=== PATIENT | female | born 1985 | race Caucasian/White ===

== ENCOUNTER 2016-12-13 17:11 | Emergency (ER) | payer BC, OTHER ==
[~2016-12-13 17:11] MED LIST: ULTR50TA PO; Z.0.NO CURRENT MEDS
[2016-12-13] MEDS ORDERED: LACTATED RINGER'S 1000 ML INJ 1,000 ML IV SCH (18:03)
[2016-12-13] MEDS ORDERED: TERBUTALINE INJ 1 MG/ML AMP SQ PRN (18:15)
[2016-12-13 18:40] LABS: BLOOD, URINE NEG (NEG); COMMENT (UR) CULT NOT INDICATED; CULTURE IF INDICATED CULT NOT INDICATED; GLUCOSE,URINE NEG (NEG); KETONE, URINE NEG (NEG); NITRITE,URINE NEG (NEG); PH, URINE 6.5 (5.0-8.5); SQUAMOUS EPITHELIAL CELL URINE 4 /hpf (0-5); URINE COLOR YELLOW (YELLW/STRAW)
[2016-12-13 18:43] VITALS: BP 102/69; PULSE 65
--- NOTE | 2016-12-13 19:30 | PD ---
HPI Chief Complaint Complaint of spotting earlier in the day Date Seen: Dec 13, 2016 Time Seen: 18:00 Travel History International Travel<30 Days: No Contact w/Intl Traveler<30Days: No Known Affected Area: No History of Present Illness HPI Patient is 31-year-old white female at [address] Ness for care who presents planning of spotting earlier the day. She denies pain leakage of fluid or heavy vaginal bleeding. She knows this that she's been here on OB ED she's not seen any blood, baby is active she has no other problems today Weeks Gestation: 34 Para: 1 : 3 History Obstetric History Obstetric History One vaginal delivery and one early loss Social History Alcohol Use: No Tobacco Use: No Substance Abuse: No Allergies-Medications (Allergen,Severity, Reaction): Coded Allergies: No Known Allergies (Unverified , 01/15/12) Home Meds Active Scripts Tramadol HCl (Ultram) 50 Mg Tab, 1 - 2 TABS PO Q6HPRN, #20 Prov:Britney Bloom MD 01/15/12 Reported Medications Miscellaneous (No Current Meds) [facility] 01/15/12 Review of Systems General / Constitutional: No: Fever, Weight Gain, Chills, Other Eyes: No: Diploplia, Blurred Vision, Visual changes, Pain, Photophobia HENT: No: Headaches, Vertigo, Lightheadedness Cardiovascular: No: Irregular Rhythm, Chest Pain or Discomfort, Palpitations, Tachycardia, Syncope, Varicosities, Edema, Cyanosis Respiratory: No: Cough, Short of Breath, Other Gastrointestinal: No: Nausea, Vomiting, Diarrhea Genitourinary: Vaginal Bleeding, No: Decreased Urinary Output, Oliguria Musculoskeletal: No: Limited ROM, Weakness, Cramping, Edema, Pain Skin: No Rash, No Itching, No Dryness, No Lumps, No Change in Pigmentation, No Change in Nails, No Alopecia, No Lesions Neurologic: No: Weakness, Dizziness, Syncope, Focal Abnormalities, Coordination Problem, Headache, Slurred Speech, Seizures Psychiatric: No: Depression, Suicidal Ideations, Homicidal Ideation Endocrine: No: Heat Intolerance, Cold Intolerance, Polydipsia, Polyuria, Other Physical Exam Vital Signs Date Time Temp Pulse Resp B/P (MAP) Pulse Ox O2 Delivery O2 Flow Rate FiO2 12/13/16 18:43 65 102/69 (80) Narrative GENERAL: Well-nourished, well-developed patient. SKIN: Warm and dry. HEAD: Normocephalic and atraumatic. EYES: No scleral icterus. No injection or drainage. ENT: No nasal drainage noted. Mucous membranes pink. Airway patent. NECK: Supple, trachea midline. No JVD. CARDIOVASCULAR: Regular rate and rhythm without murmurs, gallops, or rubs. RESPIRATORY: Breath sounds equal bilaterally. No accessory muscle use. BREASTS: Bilateral exam showed no masses , no retractions, no nipple discharge. ABDOMEN/GI: Abdomen soft, non-tender, bowel sounds present, no rebound, no guarding Gravid to [34-] weeks size Fundal Height: [34-] GENITOURINARY: External Genitalia: intact and normal in appearance Speculum exam done no blood seen in the vagina. Cervix is friable. fibronectin done and is negative Cervix: [-Closed] Dilatation: [-Closed] Effacement: [-] Thick Station: [-3] Membranes: [intact ] Uterine Contractions: [Patient maritza every 3 minutes initially-] FHT's: Category: [-1] Baseline: [133-] Reactive: [yes-] Variability: [-mod] Decels: [none-] EXTREMITIES: No cyanosis or edema. BACK: Nontender without obvious deformity. No CVA tenderness. NEUROLOGICAL: Awake and alert. Motor and sensory grossly within normal limits. Five out of 5 muscle strength in all muscle groups. Normal speech. Data Data Orders Orders Vital Signs (Adult) .ON ADMISSION (12/13/16 18:03) ^ Labor Status (12/13/16 18:03) Urinalysis - C+S If Indicated (12/13/16 18:03) Fibronectin (12/13/16 18:03) Lactated Ringer's 1000 Ml Inj (Lr 1000 M (12/13/16 18:03) Terbutaline Inj (Brethine Inj) (12/13/16 18:15) Fentanyl Inj (Fentanyl Inj) (12/13/16 18:45) Labs fibronectin negative Laboratory Tests Test 12/13/16 18:00 12/13/16 18:15 Urine Color YELLOW Urine Turbidity CLEAR Urine pH 6.5 Urine Specific [place] 1.020 Urine Protein NEG Urine Glucose (UA) NEG Urine Ketones NEG Urine Occult Blood NEG Urine Nitrite NEG Urine Bilirubin NEG Urine Urobilinogen 2.0 Urine Leukocyte Esterase NEG Urine RBC LESS THAN 1 Urine WBC LESS THAN 1 Urine Squamous Epithelial Cells 4 Microscopic Urinalysis Comment CULT NOT INDICATED Fibronectin NEGATIVE MDM Interpretation(s) Patient is a 31-year-old white female at 34 weeks who complains of spotting earlier today. We'll here on OB ED she's noted to be maritza every 3 minutes. Patient on exam is negative for any blood. Cervix is closed. fibronectin negative. Heart rate tracing reactive and initially was maritza every 3 minutes. Patient given liter of IV fluid subcutaneous terbutaline and 25 fentanyl IV and these measures stopped her contractions effectively. After for a liter fluid is and she should be ready for discharge Plan Plan to discharge patient home to the is much bedrest as possible. She slept have somebody else help her with her toddler not carry him around or carrying around a lot of heavy material was delivered cause her to be uncomfortable or cause her to contract. She is to be as instructed rest as best she can, use Tylenol liberally, increase her fluid intake, an heating pad or hot bath for symptomatic. She is followed Dr. Ness for further care. Diagnosis Diagnosis: Primary Impression: Spotting affecting in third trimester Additional Impression: Threatened premature labor in third trimester Disposition: 01 DISCHARGE HOME Condition: Stable Facundo Rosario II, MD Dec 13, 2016 19:30
== END 2016-12-13 19:20 | disposition home or self-care (01) ==
LOC: HOBED 17:11
DX: O26.853 Spotting complicating pregnancy, third trimester (principal); O47.03 False labor before 37 completed weeks of gestation, third trimester; Z3A.34 34 weeks gestation of pregnancy
CPT/HCPCS: 59025; 81001; 82731; 96372; 96374; 99284; J3010; J3105

== ENCOUNTER 2017-01-12 02:44 | Inpatient (IN) | payer BC ==
[~2017-01-12] VITALS: Ht 162.6 cm; Wt 66.2 kg
[2017-01-12] VITALS (51 sets, daily range): BP systolic 96–128; BP diastolic 58–105; PULSE 62–254; RESP 16–20; TEMP 97.5–98.1
[2017-01-12] MEDS ORDERED: LACTATED RINGER'S 1000 ML INJ 1,000 ML IV SCH (03:37)
[2017-01-12] MEDS ORDERED: LACTATED RINGER'S 1000 ML INJ 1,000 ML IV PRN (03:37)
--- NOTE | 2017-01-12 03:37 | PD ---
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 She reports that she is continued to have leaking of fluid since. She reports irregular contractions that have increased in intensity and frequency since her water broke. She reports good movement. She denies any vaginal bleeding. She has no other complaints or concerns today. Weeks Gestation: 38 Para: 1 : 3 History Past Medical History Narrative Medical MT HFR heterozygote Factor V deficiency Obstetric History Obstetric History 011 Full-term 1 SAB 1 Past Surgical History Narrative Surgical Hymenectomy [place] teeth removal Family History Narrative Family History Prostate cancer Aortic aneurysm Elevated cholesterol IA CD Colon cancer Social History Alcohol Use: No Tobacco Use: No Substance Abuse: No Allergies-Medications (Allergen,Severity, Reaction): Coded Allergies: No Known Allergies (Unverified , 01/15/12) Home Meds Active Scripts Tramadol HCl (Ultram) 50 Mg Tab, 1 - 2 TABS PO Q6HPRN, #20 Prov:Britney Bloom MD 01/15/12 Reported Medications Miscellaneous (No Current Meds) [facility] Review of Systems Except as stated in HPI: all other systems reviewed are Neg Physical Exam Narrative GENERAL: Well-nourished, well-developed patient. SKIN: Warm and dry. HEAD: Normocephalic and atraumatic. EYES: No scleral icterus. No injection or drainage. ENT: No nasal drainage noted. Mucous membranes pink. Airway patent. NECK: Supple, trachea midline. No JVD. CARDIOVASCULAR: Regular rate and rhythm without murmurs, gallops, or rubs. RESPIRATORY: Breath sounds equal bilaterally. No accessory muscle use. BREASTS: Deferred ABDOMEN/GI: Abdomen soft, non-tender, bowel sounds present, no rebound, no guarding Gravid GENITOURINARY: External Genitalia: intact and normal in appearance. Normal BUS. Grossly normal rugae. No cervical or vaginal masses noted. Appears to be grossly ruptured. SVE /-3. Cephalic presentation confirmed by ultrasound, appears to be OP. FHT's: Baseline heart rate in the 120s with moderate long-term variability , good accelerations, no decelerations noted. This is a category 1 heart rate tracing/reactive NST EXTREMITIES: No cyanosis or edema. BACK: Nontender without obvious deformity. No CVA tenderness. NEUROLOGICAL: Awake and alert. Motor and sensory grossly within normal limits. Five out of 5 muscle strength in all muscle groups. Normal speech. Psychiatric: Grossly normal memory and affect Musculoskeletal: Grossly normal range of motion, gait, muscle strength MDM Plan Assessment/plan: 1. IUP at 38.2 2. PROM: Will admit patient to Dr. Ness for rupture of membranes at term. Discussed with Dr. Montejo who would like to induce with oxytocin at this time. Discussed risks of with patient as well as risks and indications for delivery although unlikely. 3. GBS negative 4. well-being: Reassuring testing with reactive NST/category 1 heart rate tracing, will continue EFM 5. MT HFR heterozygote: The patient currently managed on baby aspirin which she last took yesterday 6. Factor V Leiden mutation Jory Dent MD Jan 12, 2017 03:37
[2017-01-12] MEDS ORDERED: CITRIC ACID-SODIUM CITRATE LIQ 30 ML UDC PO SCH (03:45)
[2017-01-12] MEDS ORDERED: SODIUM CHLORID 0.9% 500 ML INJ 500 ML IV PRN (03:45)
[2017-01-12] MEDS ORDERED: OXYTOCIN 30 UNITS-500ML PREMIX 500 ML IV SCH ×2 (03:45→09:30)
[2017-01-12] MEDS ORDERED: OXYTOCIN 30 UNITS-500ML PREMIX 500 ML IV ONE (03:45)
[2017-01-12] MEDS ORDERED: LIDOCAINE HCL 1% 50 ML VIAL I-DERMAL PRN (03:45)
[2017-01-12] MEDS ORDERED: MINERAL OIL 10 ML VIAL TOPICAL PRN (03:45)
[2017-01-12] MEDS ORDERED: LIDOCAINE HCL 1% 50 ML VIAL INFIL PRN (03:45)
[2017-01-12] MEDS ORDERED: SODIUM CHLOR 0.9% 1000 ML INJ 1,000 ML IV PRN (03:57)
[2017-01-12 04:33] LABS: AUTOMATED NEUTROPHIL # 8.4 TH/MM3 (1.8-7.7); BASOPHIL % 0.4 % (0.0-2.0); EOSINOPHIL # 0.1 TH/MM3 (0-0.4); EOSINOPHIL % 1.1 % (0.0-4.0); HEMATOCRIT 38.2 % (35.0-46.0); HEMO FLAGS DIFF FINAL; LYMPH % 20.9 % (9.0-44.0); LYMPHOCYTE # 2.5 TH/MM3 (1.0-4.8); MEAN CELL VOLUME 93.4 FL (80.0-100.0); MEAN CORPUSCULAR HEMOGLOBIN 32.3 PG (27.0-34.0); MEAN CORPUSCULAR HGB CONC 34.6 % (32.0-36.0); MONO % 6.5 % (0.0-8.0); NEUT % 71.1 % (16.0-70.0); PLATELET COUNT 227 TH/MM3 (150-450); RED BLOOD COUNT 4.09 MIL/MM3 (4.00-5.30); RED CELL DISTRIBUTION WIDTH 13.5 % (11.6-17.2); WHITE BLOOD COUNT 11.9 TH/MM3 (4.0-11.0)
[2017-01-12 05:02] LABS: BLOOD, URINE NEG (NEG); GLUCOSE,URINE NEG (NEG); KETONE, URINE NEG (NEG); MUCUS URINE FEW /lpf (OCC); NITRITE,URINE NEG (NEG); PH, URINE 6.5 (5.0-8.5); SQUAMOUS EPITHELIAL CELL URINE <1 /hpf (0-5); URINE COLOR LIGHT-YELLOW (YELLW/STRAW)
[2017-01-12 05:03] LABS: COMMENT (UR) CATH-CULT NOT IND; CULTURE IF INDICATED CATH CULTURE NOT IND
[2017-01-12] MEDS ORDERED: fentaNYL 2MCG-BUPIV 0.125% INJ 100 ML ONE (07:30)
--- NOTE | 2017-01-12 07:32 | HHI.HP ---
HPI Chief Complaint SROM Date Seen: Jan 12, 2017 Time Seen: 06:00 Travel History International Travel<30 Days: No Contact w/Intl Traveler<30Days: No Known Affected Area: No History of Present Illness HPI SROM at 0130 clear Weeks Gestation: 38 Para: 1 : 2 Last Menstrual Period: Jan 12, 2017 History Past Medical History Narrative Medical Factor v leiden and MTHFR Obstetric History Obstetric History x1 Past Surgical History Narrative Surgical wisdom teeth Social History Alcohol Use: No Tobacco Use: No Substance Abuse: No Allergies-Medications (Allergen,Severity, Reaction): Coded Allergies: hydromorphone (Verified Allergy, Severe, 01/12/17) Home Meds Active Scripts Tramadol HCl (Ultram) 50 Mg Tab, 1 - 2 TABS PO Q6HPRN, #20 Prov:Britney Bloom MD 01/15/12 Reported Medications Miscellaneous (No Current Meds) Misc 01/15/12 Review of Systems Except as stated in HPI: all other systems reviewed are Neg Physical Exam Narrative GENERAL: Well-nourished, well-developed patient. SKIN: Warm and dry. HEAD: Normocephalic and atraumatic. EYES: No scleral icterus. No injection or drainage. ENT: No nasal drainage noted. Mucous membranes pink. Airway patent. NECK: Supple, trachea midline. No JVD. CARDIOVASCULAR: Regular rate and rhythm without murmurs, gallops, or rubs. RESPIRATORY: Breath sounds equal bilaterally. No accessory muscle use. BREASTS: Bilateral exam showed no masses , no retractions, no nipple discharge. ABDOMEN/GI: Abdomen soft, non-tender, bowel sounds present, no rebound, no guarding Gravid to [-] weeks size Fundal Height: [-] GENITOURINARY: External Genitalia: intact and normal in appearance BUS glands: [-] Cervix: [-] Dilatation: 3 cm Effacement: 80 Station: [-] Presentation: vtx Membranes: ruptured] Uterine Contractions: [-] FHT's: Category: 1 Baseline: [-] Reactive: [-] Variability: [-] Decels: [-] EXTREMITIES: No cyanosis or edema. BACK: Nontender without obvious deformity. No CVA tenderness. NEUROLOGICAL: Awake and alert. Motor and sensory grossly within normal limits. Five out of 5 muscle strength in all muscle groups. Normal speech. Caprini VTE Risk Assessment Caprini VTE Risk Assessment: No/Low Risk (score <= 1) Caprini Risk Assessment Model Point Value = 1 Point Value = 2 Point Value = 3 Point Value = 5 Age 41-60 Minor surgery BMI > 25 kg/m2 Swollen legs Varicose veins or History of unexplained or recurrent spontaneous Oral contraceptives or hormone replacement Sepsis (< 1 month) Serious lung disease, including pneumonia (< 1 month) Abnormal pulmonary function Acute myocardial infarction Congestive heart failure (< 1 month) History of inflammatory bowel disease Medical patient at bed rest Age 61-74 Arthroscopic surgery Major open surgery (> 45 min) Laparoscopic surgery (> 45 min) Malignancy Confined to bed (> 72 hours) Immobilizing plaster cast Central venous access Age >= 75 History of VTE Family history of VTE Factor V Leiden Prothrombin [id number] Lupus anticoagulant Anticardiolipin antibodies Elevated serum homocysteine Heparin-induced thrombocytopenia Other congenital or acquired thrombophilia Stroke (< 1 month) Elective arthroplasty Hip, pelvis, or leg fracture Acute spinal cord injury (< 1 month) Prophylaxis Regimen Total Risk Factor Score Risk Level Prophylaxis Regimen 0-1 Low Early ambulation 2 Moderate Order ONE of the following: *Sequential Compression Device (SCD) *Heparin 5000 units SQ BID 3-4 Higher Order ONE of the following medications: *Heparin 5000 units SQ TID *Enoxaparin/Lovenox 40 mg SQ daily (WT < 150 kg, CrCl > 30 mL/min) *Enoxaparin/Lovenox 30 mg SQ daily (WT < 150 kg, CrCl > 10-29 mL/min) *Enoxaparin/Lovenox 30 mg SQ BID (WT < 150 kg, CrCl > 30 mL/min) AND/OR *Sequential Compression Device (SCD) 5 or more Highest Order ONE of the following medications: *Heparin 5000 units SQ TID (Preferred with Epidurals) *Enoxaparin/Lovenox 40 mg SQ daily (WT < 150 kg, CrCl > 30 mL/min) *Enoxaparin/Lovenox 30 mg SQ daily (WT < 150 kg, CrCl > 10-29 mL/min) *Enoxaparin/Lovenox 30 mg SQ BID (WT < 150 kg, CrCl > 30 mL/min) AND *Sequential Compression Device (SCD) Data Data Vital Signs Reviewed: Yes Orders Orders Admit To Inpatient (01/12/17 ) Vital Signs (Adult) .Per protocol (01/12/17 03:37) Heart (01/12/17 03:37) Amnioinfusion (01/12/17 03:37) Urinary Catheter Management .ONCE (01/12/17 03:37) Lactated Ringer's 1000 Ml Inj (Lr 1000 M (01/12/17 03:37) Lactated Ringer's 1000 Ml Inj (Lr 1000 M (01/12/17 03:37) Sodium Chlorid 0.9% 500 Ml Inj (Ns 500 M (01/12/17 03:45) Sodium Chlor 0.9% 1000 Ml Inj (Ns 1000 M (01/12/17 03:57) Lidocaine 1% Inj (50 Ml) (Xylocaine 1% I (01/12/17 03:45) Citric Acid-Sodium Citrate Liq (Bicitra (01/12/17 03:45) Fentanyl Inj (Fentanyl Inj) (01/12/17 03:45) Fentanyl Inj (Fentanyl Inj) (01/12/17 03:45) Complete Blood Count With Diff (01/12/17 03:37) Hold Clot (01/12/17 03:37) Abo/Rh Blood Type (01/12/17 03:37) Urinalysis - C+S If Indicated (01/12/17 03:37) Resp Oxygen Non Rebreathe Mask (01/12/17 ) ^ Epidural / Intrathecal Infus (01/12/17 03:37) Oxytocin 30 Units-500ml Premix (Pitocin (01/12/17 03:45) Lidocaine 1% Inj (50 Ml) (Xylocaine 1% I (01/12/17 03:45) Light Mineral Oil (Muri-Lube Oil) (01/12/17 03:45) Inpatient Certification (01/12/17 ) ^ Non Stress Test (01/12/17 03:39) Response To Medication .Post New Med Administration, Reaction (01/12/17 03:39) ^ Discontinue Medication (01/12/17 03:39) Oxytocin 30 Units-500ml Premix (Pitocin (01/12/17 03:45) Ob (2e) Additional Admit Info (01/12/17 03:40) No Care Spec Serology (01/12/17 04:38) Group B Strep: Negative Labs Laboratory Tests Test 01/12/17 00:42 01/12/17 03:15 01/12/17 03:37 Urine Color LIGHT-YELLOW Urine Turbidity CLEAR Urine pH 6.5 Urine Specific [place] 1.008 Urine Protein NEG Urine Glucose (UA) NEG Urine Ketones NEG Urine Occult Blood NEG Urine Nitrite NEG Urine Bilirubin NEG Urine Urobilinogen LESS THAN 2.0 Urine Leukocyte Esterase NEG Urine RBC LESS THAN 1 Urine WBC LESS THAN 1 Urine Squamous Epithelial Cells <1 Urine Mucus FEW Microscopic Urinalysis Comment CATH-CULT NOT IND White Blood Count 11.9 Red Blood Count 4.09 Hemoglobin 13.2 Hematocrit 38.2 Mean Corpuscular Volume 93.4 Mean Corpuscular Hemoglobin 32.3 Mean Corpuscular Hemoglobin Concent 34.6 Red Cell Distribution Width 13.5 Platelet Count 227 Mean Platelet Volume 9.2 Neutrophils (%) (Auto) 71.1 Lymphocytes (%) (Auto) 20.9 Monocytes (%) (Auto) 6.5 Eosinophils (%) (Auto) 1.1 Basophils (%) (Auto) 0.4 Neutrophils # (Auto) 8.4 Lymphocytes # (Auto) 2.5 Monocytes # (Auto) 0.8 Eosinophils # (Auto) 0.1 Basophils # (Auto) 0.0 CBC Comment DIFF FINAL Differential Comment Assessment/Plan Problem List: (1) 38 weeks gestation of ICD Codes: Z3A.38 - 38 weeks gestation of Taz Montejo MD Jan 12, 2017 07:32
[2017-01-12] MEDS ORDERED: ePHEDrine/NS 25 MG/5 ML SYR ONE (08:03)
--- NOTE | 2017-01-12 08:54 | PD.OB.DELI ---
Weeks gestation: 38 Gest age assessed date: Jan 12, 2017 Gest age assessed time: 06:00 Pt started active labor?: Yes Active labor start date: Jan 12, 2017 Active labor start time: 03:00 Medical induction of labor?: No Artificial rupture of membrane: No Anesthesia: Epidural Episiotomy: None Vaginal Delivery: Normal, Spontaneous Presentation: Occiput anterior Nuchal Cord: None Delayed cord clamping (45 sec): Yes Infant: Female, Single Delivery date: Jan 12, 2017 Delivery time: 08:43 One Minute : 9 Five Minute : 9 Placenta: Spontaneous delivery, Intact, 3 vessel cord Laceration: No lacerations Taz Montejo MD Jan 12, 2017 08:54
--- NOTE | 2017-01-12 08:55 | HHI.DCPOC ---
Discharge Care Plan Diagnosis: (1) Spontaneous vaginal delivery Report Symptoms to Your Doctor -Temperature above 100.5 degrees -Redness, of incision or excessive or foul smelling drainage -Unusual pain or calf pain -Increased vaginal bleeding -Painful or difficulty urinating -Feelings of extreme sadness or anxiety after 2 weeks Goals to Promote Your Health * To prevent worsening of your condition and complications * To maintain your health at the optimal level Directions to Meet Your Goals Take your medications as prescribed Follow your dietary instruction Follow activity as directed Ensure plenty of rest for recovery Drink fluids for hydration Keep your appointments as scheduled Take your immunizations and boosters as scheduled If your symptoms worsen call your PCP, if no PCP go to Urgent Care Center or Emergency Room Smoking is Dangerous to Your Health. Avoid second hand smoke Call the 24-hour crisis hotline for domestic abuse at Taz Montejo MD Jan 12, 2017 08:55
[2017-01-12] MEDS ORDERED: oxyCODONE/ACETAMINOPHEN 5 MG/325 MG TAB PO PRN ×2 (09:00)
[2017-01-12] MEDS ORDERED: ALUMINUM/MAGNESIUM/SIMETH 30 ML CUP PO PRN (09:00)
[2017-01-12] MEDS ORDERED: IBUPROFEN 600 MG TAB PO PRN (09:00)
[2017-01-12] MEDS ORDERED: ONDANSETRON ODT 4 MG TAB PO PRN (09:00)
[2017-01-12] MEDS ORDERED: BENZOCAINE 20% TOPICAL SPRAY 60 ML CAN TOPICAL PRN (09:00)
[2017-01-12] MEDS ORDERED: ACETAMINOPHEN 325 MG TAB PO PRN (09:00)
[2017-01-12] MEDS ORDERED: SODIUM CHLORIDE 0.9% FLUSH 10 ML FLUSH IV FLUSH SCH (09:00)
[2017-01-12] MEDS ORDERED: DOCUSATE SODIUM 50 MG/SENNA 8.6 MG TAB PO PRN (09:00)
[2017-01-12] MEDS ORDERED: WITCH HAZEL 50%/GLYCERIN 12.5% 40 PAD JAR TOPICAL PRN (09:00)
[2017-01-12] MEDS ORDERED: SODIUM CHLORIDE 0.9% FLUSH 10 ML FLUSH IV FLUSH PRN (09:00)
[2017-01-12] MEDS ORDERED: DO NOT ADMINISTER ANTICOAGULANTS PRN (10:00)
[2017-01-12] MEDS ORDERED: ePHEDrine/NS 25 MG/5 ML SYR IV PUSH PRN (10:00)
[2017-01-12] MEDS ORDERED: fentaNYL 2MCG-BUPIV 0.125% 100 ML EPIDURAL SCH (10:00)
[2017-01-12] MEDS ORDERED: NO SYSTEM NARCOTICS PRN (10:00)
[2017-01-12] MEDS ORDERED: prenatal vitamin PO (11:32)
[2017-01-12] MEDS ORDERED: ASPI81CH CHEW (11:33)
[2017-01-12] MEDS ORDERED: MEASLES, MUMPS, RUBELLA VACCINE 0.5 ML VIAL SQ ONE (16:00)
[2017-01-12] MEDS ORDERED: DIPHTH/TETANUS/ACEL PERTUSSIS (BOOSTER) 0.5 ML VIAL/PFS IM ONE (16:00)
[2017-01-12] MEDS ORDERED: ZOLPIDEM TARTRATE 5 MG TAB PO PRN (21:00)
--- NOTE | 2017-01-13 08:04 | HHI.OB ---
Subjective Post Day: 1 Remarks doing well dc home if ok Objective Vitals/I&O Vital Signs Date Time Temp Pulse Resp B/P (MAP) Pulse Ox O2 Delivery O2 Flow Rate FiO2 01/12/17 21:50 71 18 103/70 (81) 01/12/17 21:50 98.1 01/12/17 11:45 97.7 01/12/17 11:45 65 18 109/64 (79) 01/12/17 10:45 17 01/12/17 10:31 65 113/73 (86) 01/12/17 10:06 17 01/12/17 10:00 62 122/67 (85) 01/12/17 09:27 97.8 17 01/12/17 09:26 72 102/72 (82) 01/12/17 09:21 91 123/61 (81) 01/12/17 09:16 123/105 (111) 01/12/17 09:15 17 01/12/17 09:11 100 112/76 (88) 01/12/17 09:06 130 124/98 (107) 01/12/17 09:00 254 108/83 (91) 01/12/17 08:55 122 108/75 (86) 01/12/17 08:51 175 108/66 (80) 01/12/17 08:47 105 105/67 (80) 01/12/17 08:45 18 01/12/17 08:40 141 107/67 (80) 01/12/17 08:36 126 98/79 (85) 01/12/17 08:30 124 01/12/17 08:30 85 122/105 (111) 01/12/17 08:30 18 01/12/17 08:25 87 108/91 (97) 01/12/17 08:20 74 96/75 (82) 01/12/17 08:20 184 01/12/17 08:16 68 101/68 (79) 01/12/17 08:15 72 01/12/17 08:11 120 128/60 (82) 01/12/17 08:10 72 01/12/17 08:05 68 120/75 (90) 01/12/17 08:05 74 Objective Remarks GENERAL: Well-nourished, well-developed patient. ABDOMEN/GI: Abdomen soft, non-tender. Fundus: Firm, non-tender at umbilicus. GENITOURINARY: Light to moderate bleeding. EXTREMITIES: No cyanosis or edema, non-tender, without signs of DVT. Medications and IVs Current Medications Medications (Trade) Dose Ordered Sig/Konrad Route Start Time Stop Time Status Last Admin (NS Flush) 2 ml BID IV FLUSH 01/12/17 09:00 (NS Flush) 2 ml UNSCH PRN IV FLUSH 01/12/17 09:00 (Tylenol) 650 mg Q4H PRN PO 01/12/17 09:00 (Motrin) 600 mg Q6H PRN PO 01/12/17 09:00 01/12/17 21:50 (Percocet 5-325 Mg) 1 tab Q4H PRN PO 01/12/17 09:00 (Percocet 5-325 Mg) 2 tab Q4H PRN PO 01/12/17 09:00 (Americaine 20% Top Spr) 1 spray Q4H PRN TOPICAL 01/12/17 09:00 (Tucks Pads) 1 applic QID PRN TOPICAL 01/12/17 09:00 (Namita-Colace) 2 tab Q12H PRN PO 01/12/17 09:00 (Ambien) 5 mg HS PRN PO 01/12/17 21:00 (Mag-Al Plus Susp Liq) 15 ml Q8H PRN PO 01/12/17 09:00 (Zofran Odt) 4 mg Q6H PRN PO 01/12/17 09:00 Miscellaneous Information No systemic narcotics to be given except... UNSCH PRN .XX 01/12/17 10:00 01/13/17 09:59 Miscellaneous Information DO NOT ADMINISTER ANY ANTICOAGUL... UNSCH PRN .XX 01/12/17 10:00 01/13/17 09:59 Fentanyl/ Bupivacaine HCl 100 ml @ 11 mls/hr TITRATE EPIDURAL 01/12/17 10:00 (ePHEDrine/NS 25 MG/5 ML SYR) 10 mg UNSCH PRN IV PUSH 01/12/17 10:00 01/13/17 09:59 Assessment/Plan Problem List: (1) 38 weeks gestation of ICD Codes: Z3A.38 - 38 weeks gestation of (2) Spontaneous vaginal delivery ICD Codes: O80 - Encounter for full-term uncomplicated delivery Assessment and Plan dc today Taz Montejo MD Jan 13, 2017 08:04
--- NOTE | 2017-01-13 08:06 | HHI.DS ---
Admission Date Jan 12, 2017 at 03:41 Discharge Date: Jan 13, 2017 Admitting Diagnosis Diagnosis: (1) Spontaneous vaginal delivery ICD Codes: O80 - Encounter for full-term uncomplicated delivery Delivery Date: Jan 12, 2017 Vaginal Delivery: Normal : Female, Single Brief History SROM at 0130 clear Hospital Course same day as admission dc home Pt Condition on Discharge: Good Discharge Disposition: Discharge Home Discharge Instructions Diet Instructions: As Tolerated, No Restrictions Activities You Can Perform: Pelvic Rest Activities to Avoid: Driving for 24 hrs Follow up Referrals: [facility] - 2 Weeks @ [facility] with Taz Montejo MD, John William C. MD Jan 13, 2017 08:06
[2017-01-13] MEDS ORDERED: OXYC1TAB63 PO (08:07)
[2017-01-13 08:20] VITALS: BP 108/71; PULSE 62; RESP 16; TEMP 97.9
[2017-01-13] MEDS ORDERED: INFLUENZA VIRUS VACCINE (QUADRIVALENT) 0.5 ML SYR IM ONE (12:34)
== END 2017-01-13 14:41 | disposition home or self-care (01) | DRG 775 ==
LOC: HOBED 02:44 → H2EA 03:41 → H1EA 11:19
PROVIDERS: ADMIT Obstetrics & Gynecology; ATTEND Obstetrics & Gynecology
PROC: 10E0XZZ Delivery of Products of Conception, External Approach (ICD-10-PCS; principal; 2017-01-12)
PROC: 00HU33Z Insertion of Infusion Device into Spinal Canal, Percutaneous Approach (ICD-10-PCS; 2017-01-12)
PROC: 3E0R3CZ (ICD-10-PCS; 2017-01-12)
DX: O99.12 Other diseases of the blood and blood-forming organs and certain disorders involving the immune mechanism complicating childbirth (principal); E72.12 Methylenetetrahydrofolate reductase deficiency; D68.2 Hereditary deficiency of other clotting factors; D68.51 Activated protein C resistance; O99.284 Endocrine, nutritional and metabolic diseases complicating childbirth; Z37.0 Single live birth; Z3A.38 38 weeks gestation of pregnancy; Z23 Encounter for immunization
CPT/HCPCS: 59025; 76815; 81001; 85025; 86703; 86900; 86901; 90686; 90715; J2590; J7120; Q2038